=== PATIENT | female | born 1985 | race Caucasian/White ===

== ENCOUNTER 2020-09-10 22:34 | Emergency (ER) | payer OTHER ==
[2020-09-10] MEDS ORDERED: Lidocaine 1% w/Epinephrine 1:100K 30 ML VIAL ONE (23:05)
[2020-09-10] MEDS ORDERED: Boostrix 0.5 ML (Tdap) VIAL ONE (23:05)
[2020-09-10] MEDS ORDERED: Bacitracin 1 PK ONE (23:23)
[2020-09-10] MEDS ORDERED: Sulfameth/Trimethoprim DS 800-160mg TAB ONE (23:25)
== END 2020-09-10 23:38 | disposition home or self-care (01) ==
LOC: NAV ERS 22:34
DX: S91.312A Laceration without foreign body, left foot, initial encounter (principal); W54.0XXA Bitten by dog, initial encounter
CPT/HCPCS: 12001; 90715; J2001